=== PATIENT | male | born 1985 | race American Indian/Alaskan Native ===

== ENCOUNTER 2019-01-05 20:41 | Emergency (ER) | payer BC, OTHER ==
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
== END 2019-01-05 22:40 | disposition home or self-care (01) ==
LOC: MW.ED 20:41
DX: S69.91XA Unspecified injury of right wrist, hand and finger(s), initial encounter (principal); W22.8XXA Striking against or struck by other objects, initial encounter
CPT/HCPCS: 73130-26-RT; 73130-RT; 99283; 99283-25

== ENCOUNTER 2020-12-27 18:04 | Emergency (ER) | payer BC ==
[2020-12-27] MEDS ORDERED: Sodium Chloride 0.9% 10 ML Syringe FLUSH PRN (18:50)
[2020-12-27] MEDS ORDERED: Sodium Chloride 0.9% 2.5 ML Syringe FLUSH PRN (18:50)
[2020-12-27] MEDS ORDERED: Sodium Chloride 0.9% 1,000 ML IV ONE (19:42)
[2020-12-27] MEDS ORDERED: Ketorolac 30 MG/ML SDV IVPUSH ONE (19:42)
[2020-12-27 20:25] LABS: BLOOD UREA NITROGEN,BUN 9 mg/dL (7.0-18.0); CARBON DIOXIDE,CO2 28.6 mmol/L (21.0-32.0); CHLORIDE,CL 103 mmol/L (98-107); GLUCOSE RANDOM 101 mg/dL (74-106); LIPASE 86 U/L (73-393); POTASSIUM,K 4.3 mmol/L (3.5-5.1); SODIUM,NA 139 mmol/L (136-148)
[2020-12-27] MEDS ORDERED: Iopamidol 755 MG/ML 500 ML Multipack Bottle IVPUSH STA (20:44)
--- NOTE | 2020-12-27 22:02 | CT ---
INDICATION: Right lower quadrant and periumbilical pain. TECHNIQUE: CT of abdomen and pelvis performed after IV injection of 100 mL of Isovue-370. FINDINGS: Moderate anterior wedging of T11 and T12 vertebral bodies appears chronic with associated with hypertrophic changes. Moderate diffuse fatty infiltration of the liver. Tiny stone or 2 stones adjacent to one another in the left lower kidney. Small stone right lower kidney. Enlarged portacaval/rosamaria hepatis lymph node measures 3.1 x 1.5 cm. Few other smaller lymph nodes in the portacaval and rosamaria hepatis region. Cluster of increased number of right mid and lower quadrant mesenteric lymph nodes could be inflammatory or reactive bed colonic diverticulosis without evidence diverticulitis. Moderate amount stool in the colon. Appendix is normal. Small periumbilical fat containing anterior abdominal wall hernia. Few nonspecific air-fluid levels in nondilated small bowel loops in the left mid and lower abdomen. Remainder negative. IMPRESSION: 1. Appendix is normal. No evidence appendicitis. 2. Few small bilateral renal stones. 3. Moderately enlarged portacaval/rosamaria hepatis lymph node with a few additional smaller lymph nodes in these regions. Increased number of small lymph mildly enlarged right mid and lower quadrant mesenteric lymph nodes. These areas of lymph node prominence are nonspecific but could be inflammatory. 4. Small fat containing periumbilical lower anterior abdominal wall hernia. 5. Few nonspecific air-fluid levels within nondilated small bowel loops. Please note that all CT scans at this facility use dose modulation, iterative reconstruction, and/or weight-based dosing when appropriate to reduce radiation dose to as low as reasonably achievable. Dictated by Constantin Schmidt MD @ 12/27/2020 10:02:[address] Constantin Schmidt @ Dec 27 2020 10:02PM
--- NOTE | 2020-12-27 22:21 | EDM.PDOC ---
ED HPI GENERAL MEDICAL PROBLEM - General Chief Complaint: Abdominal Pain Stated Complaint: STOMACH CRAMPING Time Seen by Provider: 12/27/20 18:07 Source of Information: Reports: Patient History Limitations: Reports: No Limitations - History of Present Illness INITIAL COMMENTS - FREE TEXT/NARRATIVE: HISTORY AND PHYSICAL: History of present illness: Patient is a 35-year-old male who presents to the emergency room today with concern of mid/periumbilical abdominal pain x2 days. Patient states that initially he felt like it was some cramping sensation after eating but states th at over the course of the past 2 days, he has been nauseous but states he has not vomited. Patient notes that the area is more centralized in his stomach and denies any health history or any abdominal surgeries. Patient denies any other associated symptoms and describes the sensation as a "cramping like "sensation. Patient denies fever, chills, chest pain, shortness of breath, or cough. Denies headache, neck stiff ness, change in vision, syncope, or near syncope. Denies vomiting, diarrhea, constipation, or dysuria. Has not noted any blood in urine or stool. Patient has been eating and drinking appropriately. Review of systems: As per history of present illness and below otherwise all systems reviewed and negative. Past medical history: As per history of present illness and as reviewed below otherwise noncontributory. Surgical history: As per history of present illness and as reviewed below otherwise noncontributory. Social history: See social history for further information Family history: As per history of present illness and as reviewed below otherwise noncontributory. Physical exam: General: Patient is alert, oriented, and in no acute distress. Patient laying comfortably on exam table. Vitals stable and reviewed by me. HEENT: Atraumatic, normocephalic, pupils equal and reactive bilaterally, negative for conjunctival pallor or scleral icterus, mucous membranes moist, TMs normal bilaterally, throat clear, neck supple, nontender, trachea midline. No drooling or trismus noted. No meningeal signs. No hot potato voice noted. Lungs: Clear to auscultation, breath sounds equal bilaterally, chest nontender. Heart: S1S2, regular rate and rhythm without overt murmur Abdomen: Soft, nondistended, moderate periumbilical tenderness and right lower quadrant tenderness with negative Paul sign and negative rebound. Negative for masses or hepatosplenomegaly. Negative for costovertebral tenderness. Pelvis: Stable nontender. Genitourinary: Deferred. Rectal: Deferred. Skin: Intact, warm, dry. No lesions or rashes noted. Extremities: Atraumatic, negative for cords or calf pain. Neurovascular unremarkable. Neuro: Awake, alert, oriented. Cranial nerves II through XII unremarkable. Cerebellum unremarkable. Motor and sensory unremarkable throughout. Exam nonfocal. Notes: Patient is a 35-year-old male who presents emergency room today with concern of 2-day history of periumbilical abdominal pain and nausea without vomiting. Upon arrival to the ED, patient is vitally stable and well-appearing on exam but is noted to have moderate periumbilical and right lower quadrant tenderness. Will obtain baseline/routine lab work as well as intention of abdominal pelvic CT scan with contrast to the right lower quadrant abdominal pain. Mild derangements of CBC unremarkable. CMP noted to have been isolated elevation of ALT at 140 which is nonspecific and otherwise unremarkable. Urinalysis unremarkable. Lipase within normal limits. Abdominal pelvic CT shows that the appendix is normal with no other evidence of appendicitis. Few small bilateral renal stones. Moderately enlarged portocaval/rosamaria hepatis lymph nodes with a few additional smaller lymph nodes in these regions. Increased number of small lymph mildly enlarged right mid and lower quadrant mesenteric lymph nodes. These areas of lymph nodes prominence are nonspecific but could be inflammatory. Small fat-containing periumbilical lower anterior abdominal wall hernia. Few nonspecific air-fluid levels within nondilated small bowel loops. Upon reexamination of patient, he expresses improvement of his symptoms today in the ED. All incidental findings of imaging today discussed with patient and the importance to call and establish follow-up with a primary care provider due to incidental findings. Patient is noted to have moderately enlarged portocaval and rosamaria hepatis lymph nodes so we will also obtain HIV/hepatitis testing which patient is agreeable to at this time. Strict return precautions thoroughly discussed with patient. Discussed importance for following up with a primary care provider. Voices understanding and is agreeable to plan of care. Denies any further questions or concerns at this time. Diagnostics: CBC, CMP, UA, Lipase, Abd/Pelvic CT w cont, HIV, Hep B, Hep C Therapeutics: NS, Toradol Prescription: None Impression: Abdominal pain unspecified Abdominal lymphadenopathy, unspecified Plan: 1. You can alternate ibuprofen and Tylenol as directed for pain and discomfort. 2. Follow-up with your primary care provider as discussed. Call tomorrow morning to establish an appointment time as discussed. Return to the ED as needed and as discussed. Definitive disposition and diagnosis as appropriate pending reevaluation and review of above. Epigastric Pain Score (Numeric/FACES): 5 - Related Data Allergies Allergy/AdvReac Type Severity Reaction Status Date / Time No Known Allergies Allergy Verified 12/27/20 18:18 Home Meds: Home Meds . [No Known Home Meds] 01/05/19 [History] Past Medical History - Past Health History Medical/Surgical History: Denies Medical/Surgical History - Infectious Disease History Infectious Disease History: Reports: Chicken Pox Social & Family History - Family History Family Medical History: No Pertinent Family History - Tobacco Use Tobacco Use Status *Q: Current Every Day Tobacco User Years of Tobacco use: 15 Packs/Tins Daily: 1 - Caffeine Use Caffeine Use: Reports: Soda - Recreational Drug Use Recreational Drug Use: No ED ROS GENERAL - Review of Systems Review Of Systems: Comprehensive ROS is negative, except as noted in HPI. ED EXAM, GENERAL - Physical Exam Exam: See Below (see dictation) Course - Vital Signs Last Recorded V/S: Last Vital Signs Temp 97.1 F 12/27/20 18:19 Pulse 63 12/27/20 21:39 Resp 16 12/27/20 21:39 BP 146/91 H 12/27/20 21:39 Pulse Ox 98 12/27/20 21:39 - Orders/Labs/Meds Orders: Active Orders 24 hr Category Date Time Status HEPATITIS B SURFACE AG [CHEM] Routine Lab 12/27/20 19:25 Received HEPATITIS C ANTIBODY [CHEM] Routine Lab 12/27/20 19:25 Received HIV12 AG/AB 4TH GEN [CHEM] Routine Lab 12/27/20 19:25 Received Saline Lock Insert [OM.PC] Stat Oth 12/27/20 18:50 Ordered Labs: Laboratory Tests 12/27/20 12/27/20 12/27/20 Range/Units 18:50 19:30 19:30 WBC 9.43 (4.0-11.0) K/uL RBC 5.35 (4.50-5.90) M/uL Hgb 16.3 (13.0-17.0) g/dL Hct 47.7 (38.0-50.0) % MCV 89.2 (80.0-98.0) fL MCH 30.5 (27.0-32.0) pg MCHC 34.2 (31.0-37.0) g/dL RDW Std Deviation 43.1 (28.0-62.0) fl RDW Coeff of Gautam 13 (11.0-15.0) % Plt Count 258 (150-400) K/uL MPV 12.30 H (7.40-12.00) fL Neut % (Auto) 63.5 (48.0-80.0) % Lymph % (Auto) 23.1 (16.0-40.0) % Swift % (Auto) 10.3 (0.0-15.0) % Eos % (Auto) 2.7 (0.0-7.0) % Baso % (Auto) 0.4 (0.0-1.5) % Neut # (Auto) 6.0 H (1.4-5.7) K/uL Lymph # (Auto) 2.2 (0.6-2.4) K/uL Swift # (Auto) 1.0 H (0.0-0.8) K/uL Eos # (Auto) 0.3 (0.0-0.7) K/uL Baso # (Auto) 0.0 (0.0-0.1) K/uL Nucleated RBC % 0.0 /100WBC Nucleated RBCs # 0 K/uL Sodium 139 (136-148) mmol/L Potassium 4.3 (3.5-5.1) mmol/L Chloride 103 (98-107) mmol/L Carbon Dioxide 28.6 (21.0-32.0) mmol/L BUN 9 (7.0-18.0) mg/dL Creatinine 0.8 (0.8-1.3) mg/dL Est Cr Clr Drug Dosing 141.46 mL/min Estimated GFR (MDRD) > 60.0 ml/min Glucose 101 (74-106) mg/dL Calcium 8.9 (8.5-10.1) mg/dL Total Bilirubin 0.4 (0.2-1.0) mg/dL AST 37 (15-37) IU/L ALT 140 H (14-63) IU/L Alkaline Phosphatase 102 (46-116) U/L Total Protein 7.9 (6.4-8.2) g/dL Albumin 4.0 (3.4-5.0) g/dL Globulin 3.9 (2.6-4.0) g/dL Albumin/Globulin Ratio 1.0 (0.9-1.6) Lipase 86 (73-393) U/L Urine Color YELLOW Urine Appearance CLEAR Urine pH 6.0 (5.0-8.0) Ur Specific [place] >= 1.030 (1.001-1.035) Urine Protein NEGATIVE (NEGATIVE) mg/dL Urine Glucose (UA) NEGATIVE (NEGATIVE) mg/dL Urine Ketones NEGATIVE (NEGATIVE) mg/dL Urine Occult Blood TRACE-INTACT H (NEGATIVE) Urine Nitrite NEGATIVE (NEGATIVE) Urine Bilirubin NEGATIVE (NEGATIVE) Urine Urobilinogen 0.2 (<2.0) EU/dL Ur Leukocyte Esterase NEGATIVE (NEGATIVE) Urine RBC 1-2 (0-2/HPF) Urine WBC NONE SEEN (0-5/HPF) Ur Epithelial Cells NOT SEEN (NONE-FEW) Amorphous Sediment RARE (NEGATIVE) Urine Bacteria RARE (NEGATIVE) Urine Mucus FEW (NONE-MOD) Meds: Medications Discontinued Medications Generic Name Dose Route Start Last Admin Trade Name Freq PRN Reason Stop Dose Admin Sodium Chloride 1,000 mls @ 999 mls/hr 12/27/20 19:42 12/27/20 19:52 Normal Saline IV 12/27/20 20:42 999 mls/hr STAT ONE Administration Iopamidol 100 ml 12/27/20 20:44 12/27/20 20:59 Iopamidol 755 Mg/Ml 500 Ml Multipack Bottle IVPUSH 12/27/20 20:45 100 ml ONETIME STA Administration Ketorolac Tromethamine 30 mg 12/27/20 19:42 12/27/20 19:52 Ketorolac 30 Mg/Ml Sdv IVPUSH 12/27/20 19:43 30 mg ONETIME ONE Administration Sodium Chloride 10 ml 12/27/20 18:50 12/27/20 20:31 Sodium Chloride 0.9% 10 Ml Syringe FLUSH 10 ml ASDIRECTED PRN Administration Keep Vein Open Sodium Chloride 2.5 ml 12/27/20 18:50 12/27/20 20:31 Sodium Chloride 0.9% 2.5 Ml Syringe FLUSH 2.5 ml ASDIRECTED PRN Administration Keep Vein Open Departure - Departure Time of Disposition: 22:20 Disposition: Home, Self-Care 01 Clinical Impression: Lymphadenopathy, abdominal Abdominal pain Qualifiers: Abdominal location: periumbilical Qualified Code(s): R10.33 - Periumbilical pain - Discharge Information Instructions: Abdominal Pain, Adult, [id number] Referrals: PCP,None [Primary Care Provider] - Forms: ED Department Discharge Additional Instructions: The following information is given to patients seen in the emergency department who are being discharged to home. This information is to outline your options for follow-up care. We provide all patients seen in our emergency department with a follow-up referral. The need for follow-up, as well as the timing and circumstances, are variable depending upon the specifics of your emergency department visit. If you don't have a primary care physician on staff, we will provide you with a referral. We always advise you to contact your personal physician following an emergency department visit to inform them of the circumstance of the visit and for follow-up with them and/or the need for any referrals to a consulting specialist. The emergency department will also refer you to a specialist when appropriate. This referral assures that you have the opportunity for follow-up care with a specialist. All of these measure are taken in an effort to provide you with optimal care, which includes your follow-up. Under all circumstances we always encourage you to contact your private physician who remains a resource for coordinating your care. When calling for follow-up care, please make the office aware that this follow-up is from your recent emergency room visit. If for any reason you are refused follow-up, please contact the [facility] Emergency Department at and asked to speak to the emergency department charge nurse. [facility] [address] [place] [id number] [facility] [address] [place] [id number] 1. You can alternate ibuprofen and Tylenol as directed for pain and discomfort. 2. Follow-up with your primary care provider as discussed. Call tomorrow morning to establish an appointment time as discussed. Return to the ED as needed and as discussed. Sepsis Event Note (ED) - Evaluation Sepsis Screening Result: No Definite Risk - Focused Exam Vital Signs: Vital Signs Temp Pulse Resp BP Pulse Ox 12/27/20 21:39 63 16 146/91 H 98 12/27/20 18:19 97.1 F 77 16 151/96 H 96 - My Orders Last 24 Hours: My Active Orders 12/27/20 18:50 Saline Lock Insert [OM.PC] Stat 12/27/20 19:25 HEPATITIS B SURFACE AG [CHEM] Routine HEPATITIS C ANTIBODY [CHEM] Routine HIV12 AG/AB 4TH GEN [CHEM] Routine - Assessment/Plan Last 24 Hours: My Active Orders 12/27/20 18:50 Saline Lock Insert [OM.PC] Stat 12/27/20 19:25 HEPATITIS B SURFACE AG [CHEM] Routine HEPATITIS C ANTIBODY [CHEM] Routine HIV12 AG/AB 4TH GEN [CHEM] Routine
== END 2020-12-27 22:46 | disposition home or self-care (01) ==
LOC: MW.ED 18:04
DX: R59.0 Localized enlarged lymph nodes (principal); Z72.0 Tobacco use
CPT/HCPCS: 74177; 80053; 81001; 83690; 85025; 86803; 87340; 87389; 96374; 99284; J1885; J7030; Q9967

== ENCOUNTER 2022-01-12 02:22 | Emergency (ER) | payer BC ==
[2022-01-12] MEDS ORDERED: Lactated Ringers 1,000 ML IV STA (02:42)
[2022-01-12 03:23] LABS: CARBON DIOXIDE,CO2 27.2 mmol/L (21.0-32.0); POTASSIUM,K 3.7 mmol/L (3.5-5.1)
[2022-01-12] MEDS ORDERED: Tamsulosin 0.4 MG Cap.ER PO ONE (04:05)
== END 2022-01-12 04:20 | disposition home or self-care (01) ==
LOC: MW.ED 02:22
DX: N13.2 Hydronephrosis with renal and ureteral calculous obstruction (principal); M62.82 Rhabdomyolysis; R31.9 Hematuria, unspecified; Z79.899 Other long term (current) drug therapy
CPT/HCPCS: 36415; 74176; 80053; 81001; 82550; 83735; 85025; 96360; 99284; A9270; J7120

== ENCOUNTER 2022-01-27 08:30 | Emergency (ER) | payer BC ==
[2022-01-27] MEDS ORDERED: Sodium Chloride 0.9% 10 ML Syringe FLUSH PRN (08:56)
[2022-01-27] MEDS ORDERED: Sodium Chloride 0.9% 2.5 ML Syringe FLUSH PRN (08:56)
[2022-01-27] MEDS ORDERED: Ketorolac 30 MG/ML SDV IVPUSH ONE (08:56)
[2022-01-27] MEDS ORDERED: Ondansetron 4 MG/2 ML SDV IVPUSH ONE (08:56)
[2022-01-27] MEDS ORDERED: Sodium Chloride 0.9% 1,000 ML IV ONE (08:56)
[2022-01-27] MEDS ORDERED: Tamsulosin 0.4 MG Cap.ER PO ONE (08:58)
[2022-01-27] MEDS ORDERED: fentaNYL 50 MCG/ML SDV IVPUSH ONE ×2 (09:00→09:17)
[2022-01-27] MEDS ORDERED: fentaNYL 100 MCG/2 ML SDV IVPUSH STA (09:22)
[2022-01-27 09:40] LABS: CARBON DIOXIDE,CO2 24.7 mmol/L (21.0-32.0); POTASSIUM,K 4.1 mmol/L (3.5-5.1)
== END 2022-01-27 12:43 | disposition home or self-care (01) ==
LOC: MW.ED 08:30
DX: N13.2 Hydronephrosis with renal and ureteral calculous obstruction (principal)
CPT/HCPCS: 36415; 74176; 80053; 81001; 85025; 96361; 96374; 96375; 99284; A9270; J1885; J2405; J3010; J3490; J7030

== ENCOUNTER 2022-03-13 13:28 | Emergency (ER) | payer BC ==
[2022-03-13] MEDS ORDERED: Sodium Chloride 0.9% 1,000 ML IV ONE (19:16)
[2022-03-13 19:41] LABS: CARBON DIOXIDE,CO2 25.7 mmol/L (21.0-32.0); POTASSIUM,K 3.5 mmol/L (3.5-5.1)
[2022-03-13] MEDS ORDERED: Ketorolac 30 MG/ML SDV IVPUSH ONE (19:55)
[2022-03-13] MEDS ORDERED: Acetaminophen 500 MG Tab PO ONE (19:56)
[2022-03-13 19:58] LABS: CORONAVIRUS COVID-19 NAA NEGATIVE (NEGATIVE); INFLUENZA A NAA NEGATIVE (NEGATIVE); INFLUENZA B NAA NEGATIVE (NEGATIVE)
== END 2022-03-13 21:59 | disposition home or self-care (01) ==
LOC: MW.ED 13:28
DX: B34.9 Viral infection, unspecified (principal); Z20.822 Contact with and (suspected) exposure to COVID-19
CPT/HCPCS: 0240U; 36415; 71045; 80053; 81001; 82550; 85025; 86308; 86788; 86789; 87651; 96361; 96374; 99283; A9270; J1885; J7030

== ENCOUNTER 2024-04-01 16:05 | Emergency (ER) | payer BC | END 2024-04-01 17:12 | disposition home or self-care (01) | LOC: MW.ED 16:05 | DX: T63.461A Toxic effect of venom of wasps, accidental (unintentional), initial encounter (principal); Z91.030 Bee allergy status; Z75.8 Other problems related to medical facilities and other health care | CPT/HCPCS: 99282; 99283 ==

== ENCOUNTER 2024-06-14 16:30 | Emergency (ER) | payer BC ==
[2024-06-14] MEDS: Erythromycin Base 0.5% Ophth Oint 1 GM Tube EYEBOTH ONE (17:58)
== END 2024-06-14 18:31 | disposition home or self-care (01) ==
LOC: MW.ED 16:30
DX: S05.01XA Injury of conjunctiva and corneal abrasion without foreign body, right eye, initial encounter (principal); H57.8A1 Foreign body sensation, right eye; Z91.030 Bee allergy status; Z75.8 Other problems related to medical facilities and other health care; X58.XXXA Exposure to other specified factors, initial encounter
CPT/HCPCS: 99283; A9270